=== PATIENT | female | born 1955 | race Caucasian/White ===

== ENCOUNTER 2021-10-12 10:45 | Outpatient (CLI) | payer MEDICARE, OTHER, SELFPAY ==
[2021-10-12 17:29] LABS: Chloride* 101 mmol/L (96-114); Sodium* 137 mmol/L (135-149)
[2021-10-12 17:30] LABS: Potassium* 4.5 mmol/L (3.6-5.1)
[2021-10-12 17:32] LABS: Blood Urea Nitrogen* 20 mg/dL (7-30); Carbon Dioxide* 30 mmol/L (20-32); Cholesterol* 193 mg/dL (90-199); Creatinine* 0.6 mg/dL (0.5-1.5); Estimated Glomerular Filt Rate 100 ml/min; Glucose* 99 mg/dL (60-115)
[2021-10-12 17:33] LABS: Calcium* 9.3 mg/dL (8.4-10.6); HDL Cholesterol* 88 mg/dL (>=50); LDL Cholesterol Calculated 92 mg/dL (<100); Triglycerides* 66 mg/dL (40-149)
== END 2021-10-12 10:46 | disposition home or self-care (01) ==
PROVIDERS: PCP Family Medicine; Visit Provider Family Medicine
DX: R03.0 Elevated blood-pressure reading, without diagnosis of hypertension (principal); E78.5 Hyperlipidemia, unspecified; I10 Essential (primary) hypertension
CPT/HCPCS: 80048; 80061

== ENCOUNTER 2023-12-27 11:05 | Outpatient (CLI) | payer MEDICARE, OTHER, SELFPAY | END 2023-12-27 11:06 | disposition home or self-care (01) | PROVIDERS: PCP Family Medicine; Visit Provider Family Medicine | DX: Z00.00 Encounter for general adult medical examination without abnormal findings (principal); R53.83 Other fatigue; I10 Essential (primary) hypertension; Z13.21 Encounter for screening for nutritional disorder; Z13.0 Encounter for screening for diseases of the blood and blood-forming organs and certain disorders involving the immune mechanism; Z13.29 Encounter for screening for other suspected endocrine disorder | CPT/HCPCS: 80048; 82607; 84443 ==

== ENCOUNTER 2024-12-28 11:04 | Outpatient (CLI) | payer MEDICARE, SELFPAY | END 2024-12-28 11:05 | disposition home or self-care (01) | PROVIDERS: PCP Family Medicine; Visit Provider Family Medicine | DX: I10 Essential (primary) hypertension (principal); Z13.6 Encounter for screening for cardiovascular disorders | CPT/HCPCS: 80048; 80061 ==